=== PATIENT | male | born 2000 | race Asian ===

== ENCOUNTER 2019-01-13 14:05 | Observation (INO) | payer SELFPAY ==
[2019-01-13] MEDS ORDERED: Propofol 500 MG/50 ML VIAL ONE (15:20)
--- NOTE | 2019-01-13 15:49 | RAD ---
RIGHT ANKLE TWO VIEWS: 01/13/19 HISTORY: Fall. Right ankle pain. FINDINGS/IMPRESSION: There are displaced bimalleolar fractures with probable dislocation of the talorcrural joint. POS: GLENN
[2019-01-13] MEDS ORDERED: Fentanyl 100 MCG/2 ML VIAL SLOW IVP PRN (16:07)
[2019-01-13] MEDS ORDERED: traMADol HCl 50 MG TAB PO PRN (16:07)
[2019-01-13] MEDS ORDERED: HYDROcodone/Acetaminophen 10/325 mg Tablet PO PRN (16:07)
[2019-01-13] MEDS ORDERED: Ondansetron PF 4 MG/2 ML Vial IV PRN (16:07)
[2019-01-13] MEDS ORDERED: Communication Order-Pharmacy FS SCH (16:15)
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
--- NOTE | 2019-01-13 22:05 | RAD ---
XR Ankle Rt 2 View History: Fracture reduction Comparison: Radiograph same day Findings: Improved alignment of trimalleolar fracture dislocation as well as fracture of the Stieda p rocess. Impression: Improved alignment trimalleolar fracture dislocation and age indeterminant Stieda process fracture of the talus.
[2019-01-13 22:31] VITALS: BMI 22.0
[2019-01-14 07:41] VITALS: TEMP 99.3
[2019-01-14] MEDS ORDERED: Midazolam HCl 2 mg/2 ml Vial ONE ×2 (11:20→12:17)
[2019-01-14] MEDS ORDERED: Dexamethasone 4 mg/ml Vial ONE ×2 (11:20→12:17)
[2019-01-14] MEDS ORDERED: Fentanyl 100 MCG/2 ML VIAL ONE ×3 (11:20→13:09)
[2019-01-14] MEDS ORDERED: CEFAZOLIN 2 GM in Premix Bag 1 BAG IVPB SCH (13:00)
[2019-01-14] MEDS ORDERED: Meperidine HCl/PF 25 MG/ML VIAL ONE (14:05)
[2019-01-14] MEDS ORDERED: Promethazine HCl 25 MG/ML VIAL SLOW IVP PRN (14:18)
[2019-01-14] MEDS ORDERED: Ondansetron HCl/PF 4 MG/2 ML Vial IVP PRN (14:18)
[2019-01-14] MEDS ORDERED: Promethazine HCl 25 MG/ML VIAL IM PRN (14:18)
--- NOTE | 2019-01-14 16:08 | RAD ---
RIGHT ANKLE 2 VIEWS: Date: 01/14/19 HISTORY: Open reduction and internal fixation right ankle. FINDINGS/IMPRESSION: Interval reduction and internal fixation of bimalleolar fracture is seen since the previous day's exa m. POS: OFF
[2019-01-14 16:40] VITALS: BP 125/79
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
== END 2019-01-14 19:15 | disposition home or self-care (01) ==
LOC: ERS 14:05 → SURG A 18:03
PROVIDERS: ADMIT Orthopaedic Surgery; ATTEND Orthopaedic Surgery
PROC: 0QSJ04Z Reposition Right Fibula with Internal Fixation Device, Open Approach (ICD-10-PCS; principal; 2019-01-14)
PROC: 0QSG04Z Reposition Right Tibia with Internal Fixation Device, Open Approach (ICD-10-PCS; 2019-01-14)
DX: S82.851A Displaced trimalleolar fracture of right lower leg, initial encounter for closed fracture (principal); V00.141A Fall from scooter (nonmotorized), initial encounter; Y92.214 College as the place of occurrence of the external cause
CPT/HCPCS: 27840; 76000; 99152; C1713; G0378; G0390; J0690; J1100; J2175; J2250; J2704; J3010